=== PATIENT | female | born 1975 | race Caucasian/White ===

== ENCOUNTER 2018-11-09 15:23 | Emergency (ER) | payer SELFPAY ==
[~2018-11-09] VITALS: Ht 165.1 cm; Wt 65.0 kg
[2018-11-09 15:27] VITALS: BP 124/79; PULSE 74; RESP 18; Ht 165.1 cm; Wt 65.0 kg
== END 2018-11-09 18:03 | disposition left against medical advice (07) ==
LOC: FTE 15:23
DX: Z53.21 Procedure and treatment not carried out due to patient leaving prior to being seen by health care provider (principal)

== ENCOUNTER 2018-12-13 11:16 | Emergency (ER) | payer OTHER ==
[~2018-12-13] VITALS: Ht 162.6 cm; Wt 65.0 kg
[2018-12-13 11:42] VITALS: Ht 162.6 cm; Wt 65.0 kg
[2018-12-13] MEDS ORDERED: HALOPERIDOL 5 MG INJ IM STA (12:19)
[2018-12-13] MEDS ORDERED: LORAZEPAM 2 MG INJ IV STA (12:19)
--- NOTE | 2018-12-13 12:24 | ERD ---
ER Documentation Chief Complaint Chief Complaint PT BIB RA WITH [employer] FOR EVAL OF ANXIETY HYPERVERBAL. NO C/O SI OR HI HPI 43-year-old female with no known prior medical history brought to the ED by rescue ambulance with [employer] for evaluation of bizarre behavior. She has had come to the [facility]. Patient was found in the street stopping traffic and speaking incoherently. Is alert and oriented to person and place but agitated with labile mood and intermittently combative. Disorganized thoughts and is responding to internal stimuli. She answers some questions appropriately but then begins ranting incoherently. Denies suicidal homicidal ideations. Denies headache or neck pain. No chest pain, palpitations, abdominal pain, nausea or vomiting. No fevers or chills. Denies drug or alcohol use. History is limited due to the patient's clinical condition. ROS All systems reviewed and are negative except as per history of present illness. Medications Home Meds Unable to Obtain Active Prescriptions or Reported Meds Allergies Allergies: Coded Allergies: No Known Allergy (Unverified , 12/13/18) PMhx/Soc Medical and Surgical Hx: pt denies Medical Hx, pt denies Surgical Hx History of Surgery: No Anesthesia Reaction: No Hx Neurological Disorder: No Hx Respiratory Disorders: No Hx Cardiac Disorders: No Hx Psychiatric Problems: No Hx Miscellaneous Medical Probl: No Hx Alcohol Use: No Hx Substance Use: No Hx Tobacco Use: No Smoking Status: Never smoker FmHx Unknown Physical Exam Vitals Vital Signs Date Temp Pulse Resp B/P (MAP) Pulse Ox O2 O2 Flow FiO2 Time Delivery Rate 12/13/18 98.6 101 20 111/76 100 18:00 (88) 12/13/18 98.1 86 15 103/70 99 16:00 (81) 12/13/18 98.2 86 15 100/66 99 15:45 (77) 12/13/18 98.1 87 14 110/81 99 15:30 (91) 12/13/18 98.6 98 17 110/77 98 15:15 (88) 12/13/18 98.1 92 17 123/89 98 15:00 (100) 12/13/18 98.7 92 20 120/87 88 14:45 (98) 12/13/18 98.6 91 15 122/89 98 14:30 (100) 12/13/18 98.6 91 15 122/89 98 14:15 (100) 12/13/18 99 16 120/87 90 Room Air 14:00 (98) 12/13/18 98.7 105 22 132/92 97 14:00 (105) 12/13/18 98.7 105 22 132/92 97 13:45 (105) 12/13/18 97.8 111 25 129/96 94 13:30 (107) 12/13/18 97.9 104 19 123/81 98 13:15 (95) 12/13/18 97.8 104 18 123/81 96 13:00 (95) 12/13/18 104 18 114/72 96 Room Air 13:00 (86) 12/13/18 97.1 116 24 127/79 94 12:30 (95) 12/13/18 96.9 122 26 141/95 98 Room Air 12:15 (110) 12/13/18 96.9 122 16 141/95 100 12:15 (110) 12/13/18 96.9 116 16 125/95 99 11:42 (105) Physical Exam Const: Alert, anxious, hyperverbal and agitated. Head: Atraumatic Eyes: Normal Conjunctiva. Pupils equal reactive light. Horizontal nystagmus. ENT: Normal External Ears, Nose and Mouth. Neck: Full range of motion. No meningismus. Resp: Breath sounds are equal and clear to auscultation bilaterally Cardio: Regular rate and rhythm, no murmurs Abd: Soft, non tender, non distended. Normal bowel sounds Skin: No petechiae or rashes Back: No midline or flank tenderness Ext: No cyanosis, or edema Neuro: Awake and alert. No facial droop. Motor and sensory equal bilaterally. No focal deficit observed. Psych: Mood and Affect: Anxious, labile mood. Behavior: Agitated and combative Judgement: impaired by abnormal thoughts Abnormal/psychotic thoughts: Tangential with flight of ideas. Denies suicidal homicidal ideations. Result Diagram: 12/13/18 1135 12/13/18 1135 Results 24 hrs Laboratory Tests Test 12/13/18 11:35 12/13/18 16:28 White Blood Count 9.7 10^3/ul Red Blood Count 4.77 10^6/ul Hemoglobin 14.1 g/dl Hematocrit 42.7 % Mean Corpuscular Volume 89.5 fl Mean Corpuscular Hemoglobin 29.6 pg Mean Corpuscular Hemoglobin Concent 33.0 g/dl Red Cell Distribution Width 13.2 % Platelet Count 360 10^3/UL Mean Platelet Volume 9.7 fl Immature Granulocytes % 0.400 % Neutrophils % 54.2 % Lymphocytes % 35.9 % Monocytes % 7.6 % Eosinophils % 1.1 % Basophils % 0.8 % Nucleated Red Blood Cells % 0.0 /100WBC Immature Granulocytes # 0.040 10^3/ul Neutrophils # 5.3 10^3/ul Lymphocytes # 3.5 10^3/ul Monocytes # 0.7 10^3/ul Eosinophils # 0.1 10^3/ul Basophils # 0.1 10^3/ul Nucleated Red Blood Cells # 0.0 10^3/ul Sodium Level 141 mmol/L Potassium Level 3.8 mmol/L Chloride Level 109 mmol/L Carbon Dioxide Level 22 mmol/L Anion Gap 10 Blood Urea Nitrogen 12 mg/dl Creatinine 0.59 mg/dl Est Glomerular Filtrat Rate mL/min > 60 mL/min Glucose Level 117 mg/dl Calcium Level 9.3 mg/dl Total Bilirubin 0.8 mg/dl Direct Bilirubin 0.00 mg/dl Indirect Bilirubin 0.8 mg/dl Aspartate Amino Transf (AST/SGOT) 23 IU/L Alanine Aminotransferase (ALT/SGPT) 16 IU/L Alkaline Phosphatase 101 IU/L Total Protein 7.3 g/dl Albumin 4.0 g/dl Globulin 3.30 g/dl Albumin/Globulin Ratio 1.21 Thyroid Stimulating Hormone (TSH) 1.460 MIU/L Salicylates Level < 1.0 mg/dl Acetaminophen Level < 10.0 ug/ml Ethyl Alcohol Level < 10.0 mg/dl Urine Color YELLOW Urine Clarity SLIGHTLY CLOUDY Urine pH 6.0 Urine Specific [place] 1.010 Urine Ketones TRACE mg/dL Urine Nitrite NEGATIVE mg/dL Urine Bilirubin NEGATIVE mg/dL Urine Urobilinogen NEGATIVE mg/dL Urine Leukocyte Esterase NEGATIVE Romina/ul Urine Microscopic RBC 1 /HPF Urine Microscopic WBC 2 /HPF Urine Squamous Epithelial Cells FEW /HPF Urine Bacteria FEW /HPF Urine Hemoglobin NEGATIVE mg/dL Urine Glucose NEGATIVE mg/dL Urine Total Protein NEGATIVE mg/dl Urine Opiates Screen Negative Urine Barbiturates Negative Urine Amphetamines Screen POSITIVE Urine Benzodiazepines Screen Negative Urine Cocaine Screen Negative Urine Cannabinoids Negative Current Medications Medications Dose Sig/Demetris Start Time Status Last (Trade) Ordered Route PRN Stop Time Admin Dose Reason Admin Lorazepam 1 mg ONCE STAT 12/13/18 DC 12/13/18 (Ativan) IV 12:19 12/13/18 13:42 12:22 Haloperidol 5 mg ONCE STAT 12/13/18 DC 12/13/18 (Haldol) IM 12:19 12/13/18 13:42 12:22 25 mg ONCE ONCE 12/13/18 DC 12/13/18 Diphenhydrami IM 12:30 12/13/18 13:42 ne HCl 12:31 (Benadryl) Lorazepam 2 mg Q12 PRN 12/13/18 (Ativan) IM agitation 15:30 Olanzapine 10 mg Q12 PRN 12/13/18 (Zyprexa) IM Agitation 15:30 50 mg Q12 PRN 12/13/18 Diphenhydrami IM Agitation 15:30 ne HCl (Benadryl) Procedures/MDM DOCUMENTS REVIEWED: ED nurse, EMS report. LAB INTERPRETATION: CBC negative for anemia, leukocytosis and thrombocytopenia. Chemistry reveals no evidence of electrolyte abnormalities or renal insufficiency. TSH is normal. Urine drugs of abuse are positive for methamphetamines. REEXAMINATION/REEVALUATION: Time: 12:23. Patient continues to be agitated and combative. Emergent Haldol/Ativan/Benadryl IM given after lesser measures fail to control the patient's aggressive, [id number] agitation. MEDICAL DECISION MAKIN-year-old female with no known prior medical history brought to the ED by rescue ambulance with [employer] for evaluation of bizarre behavior. Patient was found in the street stopping traffic and speaking incoherently. Patient presents with symptomatology consistent with decompensation of psychiatric disease either caused by or exacerbated by methamphetamine abuse. Based on history, physical exam and appropriate lab tests, I appreciate no evidence of significant life threatening injury or illness that precludes psychiatric hospitalization. There are no toxic, infectious, metabolic, SUSTAINABILITY CONSULTANT or other unstable co-morbidities. Patient is thus medically clear for psychiatric evaluation/admission. In regards to the psychiatric complaints, this patient has clear evidence of high risk psychiatric symptoms with significant risk for decompensation and tele-psychiatry, Dr. Parra recommends involuntary hold. Medications ordered as per her recommendation. Counseled patient regarding diagnosis, diagnostic results and plan for admission. CALLS/CONSULTS: Time 12:00. Dr. Parra, Telehealth Psychiatry. Recommends 5150 hold and Zyprexa/Ativan/Benadryl Q12h as needed for agitation. 15:25: PET team evaluation. Departure Diagnosis: Primary Impression: Acute psychosis Additional Impression: Methamphetamine abuse Condition: Serious ROSETTA COBIAN MD December 13, 2018 12:24
[2018-12-13] MEDS ORDERED: DIPHENHYDRAMINE 50 MG INJ IM ONE (12:30)
--- NOTE | 2018-12-13 12:54 | PSY ---
Date/Time of Note Date/Time of Note DATE: 12/13/18 TIME: 12:50 Psychiatric Subjective Eval Consent Pt consented to telemedicine: Yes Subjective Evaluation Patient location: emergency Chief Complaint: PT BIB RA WITH [employer] FOR EVAL OF ANXIETY HYPERVERBAL. NO C/O SI OR HI History of present illness 43 yo female BIB [employer], agitated, combative, violent, disorganized. Pt is in restraints. Poor historian. Not able to state her last name to me. She knows she is in the hospital; then asked about the reaosn pt started screaming, she will never do it again and she is sorry. Labile, agitated, tangential. APpears to respond to internal stimuli. Not able to obtain the history from the pt. Past psychiatric history unknown Medical history Problems Medical Problems: (1) Acute psychosis Status: Acute (2) Patient left after triage Status: Acute Allergies: Coded Allergies: No Known Allergy (Unverified , 11/09/18) Psychiatric Objective Eval Review of Systems: Review of Systems: Not Applicable Mental Status Examination: Appearance: Disheveled Eye Contact: Fair Psychomotor Activity: Agitated Behavior: Agitated Speech: Disorganized AFFECT: Libile Mood: Anxious Though Process: Loose Thought Content: Delusions Orientation: x2 Cognition: Alert Insight: Impared Judgement: Impared Laboratory Results Laboratory Tests Test 12/13/18 11:35 White Blood Count 9.7 10^3/ul Red Blood Count 4.77 10^6/ul Hemoglobin 14.1 g/dl Hematocrit 42.7 % Mean Corpuscular Volume 89.5 fl Mean Corpuscular Hemoglobin 29.6 pg Mean Corpuscular Hemoglobin Concent 33.0 g/dl Red Cell Distribution Width 13.2 % Platelet Count 360 10^3/UL Mean Platelet Volume 9.7 fl Immature Granulocytes % 0.400 % Neutrophils % 54.2 % Lymphocytes % 35.9 % Monocytes % 7.6 % Eosinophils % 1.1 % Basophils % 0.8 % Nucleated Red Blood Cells % 0.0 /100WBC Immature Granulocytes # 0.040 10^3/ul Neutrophils # 5.3 10^3/ul Lymphocytes # 3.5 10^3/ul Monocytes # 0.7 10^3/ul Eosinophils # 0.1 10^3/ul Basophils # 0.1 10^3/ul Nucleated Red Blood Cells # 0.0 10^3/ul Sodium Level 141 mmol/L Potassium Level 3.8 mmol/L Chloride Level 109 mmol/L Carbon Dioxide Level 22 mmol/L Anion Gap 10 Blood Urea Nitrogen 12 mg/dl Creatinine 0.59 mg/dl Est Glomerular Filtrat Rate mL/min > 60 mL/min Glucose Level 117 mg/dl Calcium Level 9.3 mg/dl Total Bilirubin 0.8 mg/dl Direct Bilirubin 0.00 mg/dl Indirect Bilirubin 0.8 mg/dl Aspartate Amino Transf (AST/SGOT) 23 IU/L Alanine Aminotransferase (ALT/SGPT) 16 IU/L Alkaline Phosphatase 101 IU/L Total Protein 7.3 g/dl Albumin 4.0 g/dl Globulin 3.30 g/dl Albumin/Globulin Ratio 1.21 Salicylates Level < 1.0 mg/dl Acetaminophen Level < 10.0 ug/ml Ethyl Alcohol Level < 10.0 mg/dl Assessment and Plan Assessment/Diagnosis Diagnosis UNSPECIFIED PSYCHOSIS Recommendation/Plan Medication Management ZYPREXA 10 MG + aTIVAN 2 MG + bEANDRYL 50 MG im PRN Q 12 AGITATION IF NO DOCUMENTED ALLERGY Discharge Disposition: Psychiatric inpatient Legal Status: Place involuntary hold SYMONE MAZA MD December 13, 2018 12:54
[2018-12-13] MEDS ORDERED: OLANZAPINE 10 MG VIAL IM PRN (15:30)
[2018-12-13] MEDS ORDERED: DIPHENHYDRAMINE 50 MG INJ IM PRN (15:30)
[2018-12-13] MEDS ORDERED: LORAZEPAM 2 MG INJ IM PRN (15:30)
--- NOTE | 2018-12-14 12:34 | PSY ---
Date/Time of Note Date/Time of Note DATE: 12/14/18 TIME: 12:31 Psychiatric Subjective Eval Consent Pt consented to telemedicine: Yes Subjective Evaluation Patient location: emergency Chief Complaint: PT BIB RA WITH [employer] FOR EVAL OF ANXIETY HYPERVERBAL. NO C/O SI OR HI History of present illness 43 yo single female on 5150 for GD, DTO; pt was seen by this MD yesterday. Pending inpt psych transfer. Pt is disorganized, guarded, per ED notes, intermittently agitated. Then asked what type of help she would like, she asks for a "chocolate cake". She says she will go home from here, but doesn't know her address. Internally preoccupied, disorganized. Denies SI or HI. Past psychiatric history pt is vague; says she as on Seroquel. Hospitalization: yes Medical history Problems Medical Problems: (1) Acute psychosis Status: Acute (2) Methamphetamine abuse Status: Acute (3) Patient left after triage Status: Acute Allergies: Coded Allergies: No Known Allergy (Unverified , 12/13/18) Substance Abuse Substance abuse history: Yes Prior substance abuse treatmen: No Social History Marital status: single Occupation/M[employer]: unemployed Psychiatric Objective Eval Mental Status Examination: Appearance: Disheveled Eye Contact: Fair Psychomotor Activity: Other Behavior: Bizarre Speech: Disorganized AFFECT: Guarded Mood: Irritable Though Process: Tangential Thought Content: Delusions Suicidal: No Homicidal: No Orientation: x2 Cognition: Alert Insight: Impared Judgement: Impared Laboratory Results Laboratory Tests Test 12/13/18 11:35 12/13/18 16:28 White Blood Count 9.7 10^3/ul Red Blood Count 4.77 10^6/ul Hemoglobin 14.1 g/dl Hematocrit 42.7 % Mean Corpuscular Volume 89.5 fl Mean Corpuscular Hemoglobin 29.6 pg Mean Corpuscular Hemoglobin Concent 33.0 g/dl Red Cell Distribution Width 13.2 % Platelet Count 360 10^3/UL Mean Platelet Volume 9.7 fl Immature Granulocytes % 0.400 % Neutrophils % 54.2 % Lymphocytes % 35.9 % Monocytes % 7.6 % Eosinophils % 1.1 % Basophils % 0.8 % Nucleated Red Blood Cells % 0.0 /100WBC Immature Granulocytes # 0.040 10^3/ul Neutrophils # 5.3 10^3/ul Lymphocytes # 3.5 10^3/ul Monocytes # 0.7 10^3/ul Eosinophils # 0.1 10^3/ul Basophils # 0.1 10^3/ul Nucleated Red Blood Cells # 0.0 10^3/ul Sodium Level 141 mmol/L Potassium Level 3.8 mmol/L Chloride Level 109 mmol/L Carbon Dioxide Level 22 mmol/L Anion Gap 10 Blood Urea Nitrogen 12 mg/dl Creatinine 0.59 mg/dl Est Glomerular Filtrat Rate mL/min > 60 mL/min Glucose Level 117 mg/dl Calcium Level 9.3 mg/dl Total Bilirubin 0.8 mg/dl Direct Bilirubin 0.00 mg/dl Indirect Bilirubin 0.8 mg/dl Aspartate Amino Transf (AST/SGOT) 23 IU/L Alanine Aminotransferase (ALT/SGPT) 16 IU/L Alkaline Phosphatase 101 IU/L Total Protein 7.3 g/dl Albumin 4.0 g/dl Globulin 3.30 g/dl Albumin/Globulin Ratio 1.21 Thyroid Stimulating Hormone (TSH) 1.460 MIU/L Salicylates Level < 1.0 mg/dl Acetaminophen Level < 10.0 ug/ml Ethyl Alcohol Level < 10.0 mg/dl Urine Color YELLOW Urine Clarity SLIGHTLY CLOUDY Urine pH 6.0 Urine Specific [place] 1.010 Urine Ketones TRACE mg/dL Urine Nitrite NEGATIVE mg/dL Urine Bilirubin NEGATIVE mg/dL Urine Urobilinogen NEGATIVE mg/dL Urine Leukocyte Esterase NEGATIVE Romina/ul Urine Microscopic RBC 1 /HPF Urine Microscopic WBC 2 /HPF Urine Squamous Epithelial Cells FEW /HPF Urine Bacteria FEW /HPF Urine Hemoglobin NEGATIVE mg/dL Urine Glucose NEGATIVE mg/dL Urine Total Protein NEGATIVE mg/dl Urine Opiates Screen Negative Urine Barbiturates Negative Urine Amphetamines Screen POSITIVE Urine Benzodiazepines Screen Negative Urine Cocaine Screen Negative Urine Cannabinoids Negative Assessment and Plan Assessment/Diagnosis Diagnosis Unspecified psychosis. Recommendation/Plan Medication Management Seroquel 100 mg po BID Multiple antipsychotics: Yes Discharge Disposition: Psychiatric inpatient Legal Status: Continue involuntary hold SYMONE MAZA MD December 14, 2018 12:34
--- NOTE | 2018-12-15 04:10 | QN ---
Documentation Comment This is a 43-year-old woman placed on a 5150 psychiatric hold by both tele- psychiatry and psychiatric evaluating team (at 18:45 12/14/2018). Patient initially presented extremely disorganized, bizarre, and had violent behavior. Upon initial evaluation patient had to be sedated with lorazepam, olanzapine, and Benadryl although during my shift patient has been calm and has not required sedatives. Vital signs were repeated and are within normal limits and patient is resting comfortably. Patient currently on a 5150 psychiatric hold pending transfer to mental health facility, demographic information and 5150 form has been faxed to different facilities and we are awaiting their answer. SEPIDEH WALL MD December 15, 2018 04:10
[2018-12-15] MEDS ORDERED: NICOTINE (21 MG/24 HR) PATCH TRANSDERM ONE (12:30)
--- NOTE | 2018-12-15 15:27 | EN ---
Date/Time of Note Date/Time of Note DATE: 12/15/18 TIME: 15:20 ER Progress Note ER NOTE Subjective: This patient was signed out to me at 6 AM on November 15, 2018. Briefly, this is a 43-year-old female who was previously placed on a 5150 hold due to bizarre behavior and psychosis. The original copy of the 5150 hold was misplaced, so the patient is currently pending repeat evaluation. Family history: Patient is unable to provide Objective: Vital signs reviewed Const: No apparent distress, well-developed, well-nourished Head: Normocephalic, Atraumatic Eyes: Normal Conjunctiva. ENT: Normal External Ears, Nose and Mouth. Neck: No meningismus. Resp: Symmetric chest wall mitchell, no audible wheezes Cardio: Deferred Abd: Non distended Skin: No petechiae or rashes Ext: No cyanosis, or edema Neur: Awake and alert. No facial droop. Normal strength and sensation. Psych: Odd affect. Assessment: Psychosis, bizarre behavior Plan: The patient's workup included a medical screening examination, laboratory analysis, and diagnostic imaging such as EKG, chest x-ray or CT brain as indicated. The patient's laboratory analysis, diagnostic imaging do not suggest an acute organic pathology. At this time I believe the patient's presentation remains consistent with underlying psychiatric illness and likely exacerbation of this illness and/or psychosis. I have a much lower clinical concern for delirium or acute organic pathology such as toxicologic, metabolic, ischemic, intracranial hemorrhage, infectious process. However, we must rule this out prior to relying a diagnosis of underlying psychiatric illness. The patient was previously medically cleared for psychiatric evaluation. The patient was previously evaluated by the psychiatrist who recommended that the patient be placed on Seroquel 100 mg twice daily. I did order this medication. The patient also requested a nicotine patch as she is a daily smoker. I did feel that this was appropriate. The patient did not require any physical or chemical restraint while under my care. PMRT reevaluated the patient today and again placed the patient on a 5150 hold for psychosis and bizarre behavior. The patient will be signed out to the oncoming physician, Dr. Jiang, at 3PM on 12/15/2018. OBSERVATION NOTE Time: 4 hours Family Hx: Patient is unable to provide Evaluation: Multiple exams showed improving symptoms and no evidence of worsening psychosis DARSHAN LANDRY MD December 15, 2018 15:27
[2018-12-15] MEDS: QUETIAPINE 100 MG TAB PO SCH (21:00)
--- NOTE | 2018-12-16 01:40 | PSY ---
Date/Time of Note Date/Time of Note DATE: 12/16/18 TIME: 01:16 Psychiatric Subjective Eval Consent Pt consented to telemedicine: Yes Subjective Evaluation Patient location: emergency Chief Complaint: PT BIB RA WITH [employer] FOR EVAL OF ANXIETY HYPERVERBAL. NO C/O SI OR HI Reason for consult: Acute Psychosis History of present illness Per RN the patient has had intermittent episodes of agitation and talking about the [employer] doing something. She last needed medication around noon Monday due to insisting on leaving to smoke a cigarette. 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 She stated afterwards she was taken to the ED and "imprisoned." When asked about other kind of work she does she stated, "It's imprinted in me like revelations." When asked about suicidal thoughts she stated, "The way people are these days is awful. It's not like it was when we grew up." Ultimately she was able to state she has no thoughts of suicide nor any wishes for . When asked about hallucinations she stated she hears people. When asked what she hears she stated, "I go to places I'm supposed to go. Just certain sites." I asked her if she had any violent thoughts or felt that she needed to inflict violence on anyone, and she stated, "No, not at all. 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 She stated she would go check on her friends and then go to [facility] which is a place for homeless people to eat and take showers and wash their clothes. Discussed with ED physician who stated the patient has been calmer and not causing any issues recently and felt it was reasonable to consider discharge. Past psychiatric history Stated she was diagnosed with depression and takes Abilify. Hospitalization: Suicidal Attempt(s) ("A couple" ) Family History "They've all committed suicide." Medical history Problems Medical Problems: (1) Acute psychosis Status: Acute (2) Methamphetamine abuse Status: Acute (3) Patient left after triage Status: Acute Allergies: Coded Allergies: No Known Allergy (Unverified , 5/2/19) Substance Abuse Substance use: other (Denied drug use, UTOX +mAMP, then stated she used "a little bit.") Substance abuse history: No Prior substance abuse treatmen: No Social History Marital status: single Level of education: "You do all your life." DPA/Conservatorship: No Occupation/Prison: Stated she is employed by the [employer] Psychiatric Objective Eval Mental Status Examination: Appearance: Disheveled Eye Contact: Good Psychomotor Activity: Normal Behavior: Cooperative Speech: Clear AFFECT: Appropriate Mood: Appropriate/Full Though Process: Linear Thought Content: Delusions (About working for the [employer]) Suicidal: No Homicidal: No On 72 hour hold: Yes Orientation: x3 Cognition: Alert Insight: Impared Judgement: Intact Attention Span: Intact Laboratory Results Laboratory Tests Test 12/15/18 05:31 POC Beta HCG, Qualitative NEGATIVE Assessment and Plan Assessment/Diagnosis Diagnosis Stimulant Induced Psychosis (Improved). Recommendation/Plan Multiple antipsychotics: No Discharge Disposition: Community (home) Legal Status: Release involuntary hold Other Individual has improved significantly since ED presentation possibly due to the effects of meth wearing off. She still has some delusional beliefs about working for the [employer], but these do not seem to put her at risk for dangerous behavior or suicide. She also has a reasonable plan for self care. She reported some past suicide attempts but denied any current suicidal thoughts or wishes. Overall though she has some risk factors for suicide and violence such as a history of stimulant use she doesn't appear imminently at high suicide or violence risk. If she uses meth again her risk for suicide and violence would increase at that time, but overall she appeared much improved from her initial presentation. MOLLY WASHINGTON MD December 16, 2018 01:28
--- NOTE | 2018-12-16 02:14 | EN ---
Date/Time of Note Date/Time of Note DATE: 12/16/18 TIME: 02:11 ER Progress Note Sign Out Note: Dr. Story relayed current data and ongoing care with me. Time: Time of this note Main Issue: Psychosis, delusions Pending: Reevaluation by tele-psychiatry. Patient was reevaluated by tele-psychiatrist. The patient has been on medications for several days. Tele- psychiatrist feels that the patient has significantly improved. She is still delusional but does not pose a danger to herself or others and is very organized at this point. He does not feel that she requires an involuntary hold. Patient plans on going back to homeless snf. We will assist with that. LEXIE NATH MD December 16, 2018 02:14
[2018-12-16] MEDS: QUETIAPINE 100 MG TAB PO SCH (08:38)
[2018-12-16 08:39] VITALS: BP 112/65; PULSE 78; RESP 18
== END 2018-12-16 08:47 | disposition home or self-care (01) ==
LOC: E/R 11:16
DX: F23 Brief psychotic disorder (principal); F15.10 Other stimulant abuse, uncomplicated
CPT/HCPCS: 36415; 80053; 80307; 81001; 84443; 85025; 96372; 96374; J1200; J1630; J2060; Z7502; 81003